=== PATIENT | male | born 1965 | race Two or more races ===

== ENCOUNTER → 2016-12-18 | Outpatient (CLI) | payer OTHER | END | disposition home or self-care (01) | LOC: RADMN 09:36 | PROVIDERS: ATTEND Internal Medicine Geriatric Medicine | DX: R13.10 Dysphagia, unspecified (principal) | CPT/HCPCS: 74230; 92611 ==

== ENCOUNTER 2016-12-27 19:41 | Emergency (ER) | payer MEDICARE, MEDICAID ==
[~2016-12-27] VITALS: Ht 167.6 cm; Wt 69.5 kg
[2016-12-27] MEDS ORDERED: FAMO20 PO (20:32)
[2016-12-27] MEDS ORDERED: PHOSLOC PO (20:32)
[2016-12-27] MEDS ORDERED: RANO500T3 PO (20:32)
[2016-12-27] MEDS ORDERED: BISA10S PR (20:32)
[2016-12-27] MEDS ORDERED: DSS100 PO (20:32)
[2016-12-27] MEDS ORDERED: TICA90TA PO (20:32)
[2016-12-27] MEDS ORDERED: PREDAOS OS (20:32)
[2016-12-27] MEDS ORDERED: ATOR40TA28 PO (20:32)
[2016-12-27] MEDS ORDERED: FOLI1 PO (20:32)
[2016-12-27] MEDS ORDERED: SEVE800PW PO (20:32)
[2016-12-27] MEDS ORDERED: FLUO-191 PO (20:32)
[2016-12-27] MEDS ORDERED: LACT30L PO (20:32)
[2016-12-27] MEDS ORDERED: ISON100L PO (20:32)
[2016-12-27] MEDS ORDERED: NEPA3DRO OS (20:32)
[2016-12-27] MEDS ORDERED: INSU100I15 SQ (20:32)
[2016-12-27] MEDS ORDERED: CARV12 PO (20:32)
[2016-12-27] MEDS ORDERED: HYDR25TA84 PO (20:32)
[2016-12-27] MEDS ORDERED: ASPI81 PO (20:32)
[2016-12-27] MEDS ORDERED: CHOL200016 PO (20:32)
[2016-12-27 21:23] LABS: BASOPHILS # (AUTO) 0.03 K/uL (0.00-0.20); BASOPHILS % (AUTO) 0.4 % (0.0-2.0); EOSINOPHILS # (AUTO) 0.26 K/uL (0.00-0.70); EOSINOPHILS % (AUTO) 3.61 % (1.0-6.0); HEMATOCRIT 27.9 % (41-53); HEMOGLOBIN 9.3 g/dL (13.5-17.5); LYMPHOCYTES # (AUTO) 0.8 K/uL (1.0-4.8); LYMPHOCYTES % (AUTO) 11.4 % (22.0-44.0); MEAN CORPUSCULAR HEMOGLOBIN 29.7 pg (26.0-34.0); MEAN CORPUSCULAR HGB CONC 33.5 G/dL (31.0-37.0); MEAN CORPUSCULAR VOLUME 89 fL (80-100); MONOCYTES # (AUTO) 0.5 K/uL (0.1-1.0); NEUTROPHILS # (AUTO) 5.7 K/uL (1.8-7.7); NEUTROPHILS % (AUTO) 77.7 % (40.0-70.0); PLATELET COUNT (AUTO) 172 K/uL (150-450); RED BLOOD CELL COUNT(AUTO) 3.15 MIL/uL (4.50-5.90); RED CELL DISTRIBUTION WIDTH 16.5 % (11.5-14.5); WHITE BLOOD COUNT (AUTO) 7.3 K/uL (4.5-11.0)
[2016-12-27 21:32] LABS: CALCIUM, TOTAL 9.2 mg/dL (8.8-10.5); CREATININE 6.21 mg/dL (0.60-1.30); POTASSIUM 4.3 mmol/L (3.5-5.1)
[2016-12-27 21:38] LABS: ALBUMIN 3.2 g/dL (3.4-5.0); BILIRUBIN,TOTAL 0.4 mg/dL (0.1-1.0); TOTAL PROTEIN, SERUM 7.1 g/dL (6.4-8.2)
[2016-12-27 23:38] VITALS: BP 157/84
== END 2016-12-28 00:39 | disposition home or self-care (01) ==
LOC: EMS 20:01
DX: S00.93XA Contusion of unspecified part of head, initial encounter (principal); E11.9 Type 2 diabetes mellitus without complications; I10 Essential (primary) hypertension; Z79.4 Long term (current) use of insulin; Z79.01 Long term (current) use of anticoagulants; W18.39XA Other fall on same level, initial encounter; Y93.89 Activity, other specified; Y92.89 Other specified places as the place of occurrence of the external cause; Y99.8 Other external cause status
CPT/HCPCS: 70450; 72125; 82962; 99285